=== PATIENT | male | born 1955 | race African-American/Black ===

== ENCOUNTER 2021-05-11 11:06 | Emergency (ER) | payer MEDICARE, MEDICAID ==
[~2021-05-11] VITALS: Ht 177.8 cm; Wt 77.0 kg
[2021-05-11] MEDS ORDERED: INSULIN 70/30 (11:17)
[2021-05-11] MEDS ORDERED: LISI-186 PO (11:17)
[2021-05-11] MEDS ORDERED: GABA-529 PO (11:17)
[2021-05-11] MEDS ORDERED: IBUPROFEN 400MG TABLET PO ONE (11:45)
[2021-05-11] MEDS ORDERED: ACETAMINOPHEN 325MG TABLET PO ONE (11:45)
[2021-05-11 12:00] VITALS: BP 164/103
== END 2021-05-11 13:40 | disposition home or self-care (01) ==
LOC: ER 11:06
DX: S20.211A Contusion of right front wall of thorax, initial encounter (principal); M25.511 Pain in right shoulder; M25.532 Pain in left wrist; I10 Essential (primary) hypertension; E11.9 Type 2 diabetes mellitus without complications; F17.210 Nicotine dependence, cigarettes, uncomplicated; V19.9XXA Pedal cyclist (driver) (passenger) injured in unspecified traffic accident, initial encounter; Y93.55 Activity, bike riding; Y92.410 Unspecified street and highway as the place of occurrence of the external cause; Z79.4 Long term (current) use of insulin; Z88.0 Allergy status to penicillin; Z98.890 Other specified postprocedural states
CPT/HCPCS: 71250; 73030; 73110; 99284

== ENCOUNTER 2021-12-26 09:52 | Emergency (ER) | payer MEDICARE, MEDICAID ==
[~2021-12-26] VITALS: Ht 175.3 cm; Wt 86.0 kg
[~2021-12-26 09:52] MED LIST: GABA-529 PO; INSULIN 70/30; LISI-186 PO
[2021-12-26] MEDS ORDERED: FAMOTIDINE 20MG/2ML VIAL IV ONE (10:15)
[2021-12-26] MEDS ORDERED: VISCOUS LIDOCAINE 2% 15 ML UDC PO ONE (10:15)
[2021-12-26] MEDS ORDERED: MAGNESIUM/ALUMINUM HYDROXIDE/SIMETHICONE 30ML UDC PO ONE (10:15)
[2021-12-26] MEDS ORDERED: FAMOTIDINE 20MG TABLET PO ONE (12:45)
[2021-12-26 12:51] LABS: BASOPHILS % 0.7 % (0.0-2.0); EOSINOPHILS % 2.3 % (0.0-5.0); HEMATOCRIT. 45.5 % (42.0-52.0); MEAN CORPUSCULAR HEMOGLOBIN 30.2 pg (28.0-32.0); MEAN CORPUSCULAR VOLUME 91.8 fL (80.0-94.0); MEAN PLATELET VOLUME 9.2 fl (7.4-10.4); MONOCYTES % 10.6 % (2.0-8.0); NEUTROPHILS % 68.4 % (40.0-76.0); PLATELET 172 x1000/uL (130-400); RED BLOOD CELL COUNT 4.96 mill/uL (4.7-6.1); RED CELL DISTRIBUTION WIDTH 14.1 % (11.6-14.6)
[2021-12-26 12:54] LABS: CHLORIDE 108 mEq/L (98-107)
[2021-12-26 13:18] LABS: CLARITY URINE CLEAR (CLEAR); COLOR URINE YELLOW (YELLOW); KETONES URINE NEGATIVE (NEGATIVE); LEUKOCYTE ESTERASE URINE 1+ (NEGATIVE); NITRITE URINE POSITIVE (NEGATIVE); OCCULT BLOOD URINE TRACE (NEGATIVE); PROTEIN URINE 3+ (NEGATIVE); SPECIFIC GRAVITY URINE 1.022 (1.005-1.030)
[2021-12-26] MEDS ORDERED: IBUP-2029 MT (15:17)
[2021-12-26] MEDS ORDERED: HYDR-4001 MT (15:17)
[2021-12-26] MEDS ORDERED: CIPR-263 MT (15:20)
[2021-12-26 16:01] VITALS: BP 141/71
== END 2021-12-26 16:00 | disposition home or self-care (01) ==
LOC: ER 09:52
DX: K85.90 Acute pancreatitis without necrosis or infection, unspecified (principal); N39.0 Urinary tract infection, site not specified; E11.9 Type 2 diabetes mellitus without complications; I10 Essential (primary) hypertension; Z79.4 Long term (current) use of insulin; Z88.0 Allergy status to penicillin
CPT/HCPCS: 36415; 74176; 76705; 80053; 81003; 83690; 85025; 87077; 87086; 87186; 99285; J3490

== ENCOUNTER 2023-08-24 21:28 | Emergency (ER) | payer OTHER, MEDICAID ==
[~2023-08-24] VITALS: Ht 172.7 cm; Wt 79.0 kg
[~2023-08-24 21:28] MED LIST changes: +CIPR-263 MT; +HYDR-4001 MT; +IBUP-2029 MT
[2023-08-24 21:30] VITALS: O2SAT 97
[2023-08-24 21:40] VITALS: TEMP 97
[2023-08-24] MEDS ORDERED: DEXTROSE 50% WATER 50ML SYRINGE IV ONE (22:00)
[2023-08-24] MEDS ORDERED: SODIUM CHLORIDE 0.9% 1,000 ML IV ONE (22:30)
[2023-08-25 00:54] LABS: BASOPHILS % 0.6 % (0.0-2.0); EOSINOPHILS % 1.7 % (0.0-5.0); HEMATOCRIT. 42.5 % (42.0-52.0); HEMOGLOBIN. 13.9 g/dL (14.0-18.0); LYMPHOCYTES % 21.8 % (20.0-50.0); MEAN CORPUSCULAR HEMOGLOBIN 30.2 pg (28.0-32.0); MEAN CORPUSCULAR HGB CONC 32.7 g/dL (31.0-37.0); MEAN CORPUSCULAR VOLUME 92.4 fL (80.0-94.0); MEAN PLATELET VOLUME 9.3 fl (7.4-10.4); NEUTROPHILS % 68.9 % (40.0-76.0); PLATELET 162 x1000/uL (130-400); RED CELL DISTRIBUTION WIDTH 14.2 % (11.6-14.6); WHITE BLOOD COUNT 10.1 x1000/uL (4.5-11.0)
[2023-08-25 00:58] LABS: CHLORIDE 105 mEq/L (98-107); INDEX HEMOLYSI 1 (1-3); INDEX HEMOLYSI 2 (1-3); INDEX ICTERIC 1 (1-4); INDEX LIPEMIC 1 (1-3); POTASSIUM 4.2 mEq/L (3.5-5.1); SODIUM 139 mEq/L (136-145)
[2023-08-25 01:02] LABS: AMMONIA 17 uMol/L (<32)
[2023-08-25 01:04] LABS: ACETAMINOPHEN <2 ug/mL ug/mL (10-30); ALANINE AMINOTRANSFERASE 49 IU/L (13-61); ALBUMIN 3.5 g/dL (3.4-5.0); ASPARTATE AMINOTRANSFERASE 36 IU/L (15-37); BILIRUBIN TOTAL 0.5 mg/dL (0.1-1.0); CALCIUM 8.7 mg/dL (8.5-10.1); CARBON DIOXIDE 28 mEq/L (21-32); CREATINE KINASE 392 IU/L (39-308); CREATININE 1.1 mg/dL (0.6-1.3); ETHANOL BLOOD < 10 mg/dL (<10); GLUCOSE 103 mg/dL (70-105); PROTEIN TOTAL 7.7 g/dL (6.0-8.3); UREA NITROGEN BLOOD 24 mg/dL (7-21)
[2023-08-25 03:30] VITALS: BP 164/97; PULSE 95; RESP 18
[2023-08-25] MEDS ORDERED: NALO4SPR BOTHNSTRLS (04:07)
[2023-08-25 04:25] LABS: *AMPHETAMINES SCREEN URINE PRESUMTIVE POSITIVE (NEGATIVE); *BARBITURATES SCREEN URINE NEGATIVE (NEGATIVE); *BENZODIAZEPINES SCREEN URINE NEGATIVE (NEGATIVE); *COCAINE SCREEN URINE NEGATIVE (NEGATIVE); CANNABINOID URINE SCREEN NEGATIVE (NEGATIVE); ECSTASY MDMA SCREEN URINE CONF.TEST INDICATED (NEGATIVE); OPIATES URINE SCREEN NEGATIVE (NEGATIVE); PHENCYCLIDINE URINE SCREEN NEGATIVE (NEGATIVE)
[2023-08-25 04:47] LABS: CLARITY URINE CLEAR (CLEAR); COLOR URINE YELLOW (YELLOW); GLUCOSE URINE 1+ (NEGATIVE); KETONES URINE NEGATIVE (NEGATIVE); LEUKOCYTE ESTERASE URINE NEGATIVE (NEGATIVE); NITRITE URINE NEGATIVE (NEGATIVE); OCCULT BLOOD URINE NEGATIVE (NEGATIVE); PH URINE 6.5 (4.5-8.0); PROTEIN URINE 1+ (NEGATIVE); SPECIFIC GRAVITY URINE 1.011 (1.005-1.030)
[2023-08-25 04:51] LABS: BACTERIA URINE NONE SEEN; YEAST URINE NONE SEEN
[2023-08-25 06:21] LABS: RBC URINE 0-2 /hpf (0-2); WBC URINE 0-2 /hpf (0-2)
[2023-08-25 06:22] LABS: SQUAMOUS EPITHELIAL CELL URINE FEW /lpf (RARE/1+)
== END 2023-08-25 04:55 | disposition home or self-care (01) ==
LOC: ER 21:28
DX: T50.7X1A Poisoning by analeptics and opioid receptor antagonists, accidental (unintentional), initial encounter (principal); X58.XXXA Exposure to other specified factors, initial encounter; Z79.899 Other long term (current) drug therapy
CPT/HCPCS: 81003; 82962 ×2; 36415; 71045; 96374; 99285; 80053; 80305; 80307; 80329; 80320; 82140; 82550; 85025; 70450; J7030; G0480